=== PATIENT | male | born 1930 | race Caucasian/White ===

== ENCOUNTER 2016-10-02 11:02 | Emergency (ER) | payer MEDICARE ==
--- NOTE | ~2016-10-02 | PRECARD ---
H&P [facility] [address] [place]. [address] NAME: NANI REYNA : 30 STATUS : ADM Low PAT#: [id number] AGE: 85 ADM/REG DATE : 10/02/16 MR#: [id number] REPORT SERV DATE: 10/02/16 DICTATED BY: SAUNDRA JAVIER DATE: 10/02/16 REPORT STATUS : Draft TRANSCRIBED BY: DENAE DATE: 10/02/16 DATE OF ADMISSION: 10/02/2016 PRIMARY PATIENT TRANSPORT ORDERLY: Dr. Juares. CHIEF COMPLAINT: Fatigue and dizziness. REASON FOR ADMISSION: Bigeminy earlier today. SOURCE: The patient, his daughter, and the chart. HISTORY OF PRESENT ILLNESS: Mr. Reyna is a very pleasant 85-year-old white man with history of coronary artery disease, status post remote coronary artery bypass grafting, who last saw Dr. Juares in the office in August. Over the last few days, he has felt bad and fatigued. His is currently under hospice care and the hospice nurses sent him to the emergency room. He has felt dizzy, but has not had any loss of consciousness. He has some palpitation and feels his body pulse at times. He also has poor balance, but no shortness of breath and no chest pain. REVIEW OF SYSTEMS: All other systems are negative. ALLERGIES: NO KNOWN DRUG ALLERGIES. MEDICATIONS: At home, include aspirin, CoQ10, multivitamins, and niacin. CARDIAC RISK FACTORS: Hypertension, hyperlipidemia. Denies diabetes, tobacco, or family history. PAST MEDICAL HISTORY: Significant for myocardial infarction in 2008 with coronary bypass grafting to four vessels in [place], PACs and PVCs identified on Holter monitor earlier this year by Dr. Juares. He has been treated conservatively, status post cataract surgery. SOCIAL HISTORY: The patient lives in [place]. He is . His is currently under hospice care. He is retired. He has three children, who are alive and well. One has had leukemia in the past and is with him here today. FAMILY HISTORY: Negative for coronary artery disease at a young age. PHYSICAL EXAMINATION: GENERAL: He is a well-developed, well-nourished, very elderly white man, in no acute distress. VITAL SIGNS: Lying 167/98, pulse 75; sitting 171/93, pulse 77; standing 180/104, pulse 85. The oxygen saturation 99% on room air, respirations 14. HEENT: Sclerae anicteric. Lips without cyanosis. NECK: Carotids 2+ and symmetrical. No bruits. No JVD. No thyromegaly. H&P [facility] [address] [place]. [address] NAME: NANI REYNA : 30 STATUS : ADM Low PAT#: [id number] AGE: 85 ADM/REG DATE : 10/02/16 MR#: [id number] REPORT SERV DATE: 10/02/16 DICTATED BY: SAUNDRA JAVIER DATE: 10/02/16 REPORT STATUS : Draft TRANSCRIBED BY: DENAE DATE: 10/02/16 LUNGS: Clear to auscultation. No use of accessory muscles. HEART: Regular rate and rhythm without murmur, gallop, or rub. CHEST: Healed sternotomy. ABDOMEN: Positive bowel sounds. Soft, nontender. EXTREMITIES: Upper right extremity pulses 2+ and symmetrical. No cyanosis, clubbing, or edema. BACK: No CVA tenderness. MUSCULOSKELETAL: Good tone. NEURO: Alert and oriented x3. LABORATORY DATA: Chest x-ray, cardiomegaly, nonspecific minimal base changes in the left lung base. Possible early atelectasis. Sodium 138, potassium 4.3, chloride 107, BUN 11, creatinine 1.11, glucose 90. White count 11.3, hemoglobin 15.0, hematocrit 45.0, platelets 281,000. INR 1.2. Troponin I less than 0.02. Telemetry earlier revealed sinus rhythm with bigeminy, now reveals sinus rhythm. EKG; sinus rhythm with first-degree AV block, WA interval of 220 milliseconds, frequent premature ventricular complexes in a pattern of bigeminy, anteroseptal myocardial infarction of undetermined age. IMPRESSION: 1. Dizziness. 2. Palpitations. 3. History of PACs and PVCs by Holter monitor earlier this year. 4. Remote coronary artery disease, status post coronary artery bypass grafting in 2008 in [place]. 5. Normal left ventricular systolic function by last echo in 2008. 6. 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 7. History of hypertension. 8. No evidence of orthostatic hypotension. 9. Hyperlipidemia. RECOMMENDATIONS: 1. Implantable loop recorder. The risks, benefits, and complications were discussed with the patient and his daughter, they understand them and those of his alternatives and wished to proceed. We will schedule as outpatient with electrophysiology soon. He was cautioned not to drive with the loop recorder. His daughter reports that he is no longer driving. 2. Echocardiogram. 3. Carotid ultrasound. 4. Follow up with Dr. Juares in the office following the above. The risks, benefits, and complications were discussed with the patient, he understands them and those of his alternatives and wishes to proceed. Questions answered. 5. Return for any further problems. [facility]DENAE H&P [address] [address] NAME: NANI REYNA : 30 STATUS : ADM Low PAT#: [id number] AGE: 85 ADM/REG DATE : 10/02/16 MR#: [id number] REPORT SERV DATE: 10/02/16 DICTATED BY: SAUNDRA JAVIER DATE: 10/02/16 REPORT STATUS : Draft TRANSCRIBED BY: DENAE DATE: 10/02/16 Saundra Javier M.D. / [id number] CC: Saundra Javier M.D.
[~2016-10-02 11:02] MED LIST: ASAB PO; ATV.5 PO; PAX20 PO
[2016-10-02 12:57] LABS: BASOPHILS 0.2 %; BASOPHILS ABSOLUTE 0.02 10/3/uL (0.0-0.16); EOSINOPHILS 1.6 %; EOSINOPHILS ABSOLUTE 0.18 10/3/uL (0.0-0.53); ER CBC TAT 0 Hrs 07 Mins; IMMATURE GRANULOCYTES 0.2 %; IMMATURE GRANULOCYTES ABSOLUTE 0.02 10/3/uL (0.0-0.11); LYMPHOCYTES 38.8 %; LYMPHOCYTES ABSOLUTE 4.37 10/3/uL (0.67-4.30); MEAN CORPUS HGB CONC 33.3 g/dL (32.0-36.0); MEAN CORPUSCULAR HEMOGLOB 32.5 pg (26.0-34.0); MEAN CORPUSCULAR VOLUME 97.6 fL (80-100); MEAN PLATELET VOLUME 10.9 fL (9.2-13.0); MONOCYTES 5.7 %; MONOCYTES ABSOLUTE 0.64 10/3/uL (0.21-1.20); NEUTROPHILS 53.5 %; NEUTROPHILS ABSOLUTE 6.03 10/3/uL (2.02-8.40); PLATELET COUNT 281 10/3/uL (150-400); RBC DISTRIBUTION WIDTH 13.5 % (12.0-16.0); RED CELL COUNT 4.61 10/6/uL (4.7-6.1); WHITE BLOOD CELLS 11.3 10/3/uL (4.5-10.5)
[2016-10-02 12:58] LABS: MANUAL DIFF NO %
[2016-10-02 13:04] LABS: INTERNATIONAL NORMAL RATI 1.2 UNITS (-); PARTIAL THROMBO TIME 34.5 SEC (22.5-37.2); PROTIME (NOT ORD) 14.7 SEC (12.0-14.5)
[2016-10-02 13:18] LABS: BUN (BLOOD UREA NITROGEN) 11 MG/DL (6-23); CALCIUM, SERUM 9.1 MG/DL (8.5-10.4); CHEST PAIN PROFILE TAT 0 Hrs 28 Mins; CHLORIDE, SERUM 107 MMOL/L (96-112); CO2 (CARBON DIOXIDE) 26 MMOL/L (24-34); CREATININE 1.11 MG/DL (0.70-1.30); GFR AFRICAN AMERICAN 70 ML/MIN (>=60); GFR NON AFRICAN AMERICAN 60 ML/MIN (>=60); GLUCOSE, SERUM 90 MG/DL (60-99); POTASSIUM, SERUM 4.3 MMOL/L (3.5-5.3); SODIUM, SERUM 138 MMOL/L (135-148); TROPONIN I <0.02 NG/ML (<0.05)
[2016-10-02] MEDS ORDERED: ASAB PO (14:30)
[2016-10-02] MEDS ORDERED: CO Q-10100 MG PO (14:33)
[2016-10-02] MEDS ORDERED: MULTIVITAMI1 PO (14:33)
[2016-11-22] MEDS ORDERED: SLO-NIACIN250 MG PO (14:25)
[2016-11-23] MEDS ORDERED: ULTRAM50 PO (08:30)
== END 2016-10-02 18:53 | disposition home or self-care (01) ==
LOC: ER 11:02
PROVIDERS: Emergency Medicine
DX: R00.8 Other abnormalities of heart beat (principal); R07.9 Chest pain, unspecified; R55 Syncope and collapse; I25.2 Old myocardial infarction; Z95.5 Presence of coronary angioplasty implant and graft; Z79.82 Long term (current) use of aspirin; Z79.899 Other long term (current) drug therapy
CPT/HCPCS: 71010; 80048; 83735; 84484; 85025; 85610; 85730; 93005; 99285